=== PATIENT | female | born 1975 | race African-American/Black ===

== ENCOUNTER 2017-08-25 12:22 | Emergency (ER) | payer MEDICAID ==
[~2017-08-25] VITALS: Ht 154.9 cm; Wt 123.0 kg
[2017-08-25] MEDS ORDERED: ASPI-1159 PO (13:14)
[2017-08-25] MEDS ORDERED: ALBU18HF2 IH (13:14)
[2017-08-25] MEDS ORDERED: LISI2.5T47 PO (13:14)
[2017-08-25] MEDS ORDERED: METF500T4 PO (13:14)
[2017-08-25 16:01] LABS: BASOPHILS % 0.4 % (0.0-2.0); EOSINOPHILS % 2.8 % (0.0-5.0); HEMATOCRIT. 42.4 % (36.0-48.0); HEMOGLOBIN. 13.5 g/dL (12.0-16.0); LYMPHOCYTES % 35.5 % (20.0-50.0); MEAN CORPUSCULAR HEMOGLOBIN 25.7 pg (28.0-32.0); MEAN CORPUSCULAR VOLUME 80.6 fL (81.0-99.0); MEAN PLATELET VOLUME 8.9 fl (7.4-10.4); MONOCYTES % 6.6 % (2.0-8.0); NEUTROPHILS % 54.7 % (40.0-76.0); PLATELET 266 x1000/uL (130-400); RED BLOOD CELL COUNT 5.26 mill/uL (4.2-5.4); RED CELL DISTRIBUTION WIDTH 14.4 % (11.6-14.6)
[2017-08-25] MEDS ORDERED: KETOROLAC 30MG/ML VIAL IV STA (16:04)
[2017-08-25] MEDS ORDERED: MORPHINE SULFATE 4 MG/ML CPJ (NOT FOR IM USE) IV STA (16:04)
[2017-08-25] MEDS ORDERED: ONDANSETRON HCL 4MG/2ML VIAL IV STA (16:04)
[2017-08-25 16:08] LABS: INR 1.1; PARTIAL THROMBOPLASTIN TIME 26.4 sec (23.4-31.0); PROTHROMBIN TIME 11.2 sec (9.4-11.6)
[2017-08-25 16:12] LABS: CHLORIDE 105 mEq/L (98-107)
[2017-08-25 16:13] LABS: HCG SCREEN NEGATIVE
[2017-08-25 16:16] LABS: TROPONIN I < 0.02 ng/mL (0.00-0.04)
[2017-08-25 17:14] VITALS: BP 145/92
== END 2017-08-25 18:00 | disposition home or self-care (01) ==
LOC: ER 14:49
DX: R07.89 Other chest pain (principal); I10 Essential (primary) hypertension; I48.91 Unspecified atrial fibrillation; E11.9 Type 2 diabetes mellitus without complications; J45.909 Unspecified asthma, uncomplicated; G47.33 Obstructive sleep apnea (adult) (pediatric); E66.9 Obesity, unspecified; Z68.43 Body mass index [BMI] 50.0-59.9, adult; Z79.82 Long term (current) use of aspirin; Z79.84 Long term (current) use of oral hypoglycemic drugs; Z79.899 Other long term (current) drug therapy
CPT/HCPCS: 36415; 71045; 80053; 83690; 83880; 84443; 84484; 84703; 85025; 85610; 85730; 93005; 96374; 96375; 99285; J1885; J2270; J2405; Z7610